=== PATIENT | male | born 1995 | race Caucasian/White ===

== ENCOUNTER 2017-08-23 11:11 | Emergency (ER) | payer OTHER ==
[2017-08-23] MEDS ORDERED: diphenhydrAMINE INJ 50 MG/ML VIAL IVP STA (12:25)
[2017-08-23] MEDS ORDERED: METOCLOPRAMIDE 10 MG/2 ML VIAL IVP STA (12:25)
--- NOTE | 2017-08-23 12:27 | ED Physician Documentation ---
History of Present Illness - Stated complaint Stated Complaint: CAZARES/VOMITING - Chief complaint Chief Complaint: General - History obtained from History obtained from: Patient, Family () - History of Present Illness Timing: Today (Gentleman, previously healthy with only occasional headaches resolved by Motrin was awoken today at 9 AM by a pretty bad global headache associated with mild light sensitivity and vomiting. He is most worried because on the second round of vomiting it became bloody, but has vomited since and it is only slightly bloody now. There is no diarrhea, recent illness, fever , recent travel.) Review of Systems Constitutional: denies: Fever, Chills Cardiac: denies: Chest pain / pressure, Palpitations Respiratory: denies: Dyspnea, Cough GI: reports: Nausea, Vomiting. denies: Abdominal Pain PD PAST MEDICAL HISTORY - Past Medical History Past Medical History: Yes Neuro: Headache/migraine - Past Surgical History Past Surgical History: No - Present Medications Home Medications: Ambulatory Orders Medication Instructions Recorded Confirmed Ondansetron HCl [Zofran] 4 mg PO Q6H PRN #10 tablet 08/23/17 - Allergies Allergies/Adverse Reactions: Allergies Allergy/AdvReac Type Severity Reaction Status Date / Time No Known Drug Allergies Allergy Verified 08/23/17 11:19 - Social History Does the pt smoke?: No Smoking Status: Never smoker Does the pt drink ETOH?: No Does the pt have substance abuse?: No - Immunizations Immunizations are current?: Yes - POLST Patient has POLST: No PD ED PE NORMAL - Vitals Vital signs reviewed: Yes - General General: Alert and oriented X 3, No acute distress - HEENT HEENT: PERRL, EOMI, Ears normal, Pharynx benign - Neck Neck: Supple, no meningeal sign, No bony TTP - Cardiac Cardiac: RRR, No murmur - Respiratory Respiratory: No respiratory distress, Clear bilaterally - Abdomen Abdomen: Normal bowel sounds, Soft, Non tender - Neuro Neuro: Alert and oriented X 3, Normal speech Eye Opening: Spontaneous Motor: Obeys Commands Verbal: Oriented GCS Score: 15 - Psych Psych: Normal mood, Normal affect Results - Vitals Vitals: Vital Signs - 24 hr 08/23/17 11:15 Temperature 36.4 C L Heart Rate 76 Respiratory 14 Rate Blood Pressure 125/69 O2 Saturation 100 Oxygen O2 Source Room air - Labs Labs: Laboratory Tests 08/23/17 08/23/17 08/23/17 12:30 12:30 12:30 WBC 12.8 H RBC 5.23 Hgb 15.3 Hct 44.6 MCV 85.2 MCH 29.2 MCHC 34.2 RDW 12.5 Plt Count 243 MPV 7.2 L Neut # 11.4 H Lymph # 0.9 L Cass # 0.5 Eos # 0.0 Baso # 0.0 Absolute Nucleated RBC 0.00 Nucleated RBC % 0.0 PT 12.0 INR 1.1 Sodium 136 Potassium 3.9 Chloride 102 Carbon Dioxide 26 Anion Gap 8.0 BUN 18 Creatinine 1.0 Estimated GFR (MDRD) 95 Glucose 105 H Calcium 9.7 Total Bilirubin 1.0 AST 23 ALT 27 Alkaline Phosphatase 61 Total Protein 7.9 Albumin 5.1 Globulin 2.8 Albumin/Globulin Ratio 1.8 Lipase < 10 L - Rads (name of study) Ct Head Radiology: EMP read contemporaneously (NAD) PD MEDICAL DECISION MAKING - ED course ED course: 21-year-old gentleman with a history of headaches but now a somewhat atypical headache for him, he is more concerned about the emesis and hematemesis which seems most like a Jennifer-Yin tear. He appears comfortable and has normal neurologic exam. There is no neck stiffness or fever. His head CT was normal and we discussed a lumbar puncture, after discussion of the procedure he refuses this procedure and prefers to watch his symptoms at home, he does understand there is a small risk of missed pathology including subarachnoid hemorrhage or meningitis. Departure - Departure Disposition: 01 Home, Self Care Clinical Impression: Headache Qualifiers: Headache type: unspecified Headache chronicity pattern: acute headache Intractability: not intractable Qualified Code(s): R51 - Headache Vomiting Qualifiers: Vomiting type: unspecified Vomiting Intractability: non-intractable Nausea presence: with nausea Qualified Code(s): R11.2 - Nausea with vomiting, unspecified Condition: Good Record reviewed to determine appropriate education?: Yes Instructions: ED Cephalgia Unspecified Prescriptions: Ondansetron HCl [Zofran] 4 mg PO Q6H PRN #10 tablet PRN Reason: Nausea / Vomiting Comments: Return anytime as discussed especially if you develop fever or neck stiffness or worsen in any other way.
[2017-08-23 12:49] LABS: INR 1.1 (0.8-1.2)
[2017-08-23 12:58] LABS: BASOPHILS % (AUTO) 0.1 %; EOSINOPHILS % (AUTO) 0.1 %; HGB - HEMOGLOBIN 15.3 g/dL (14.0-18.0); LYMPHOCYTES # (AUTO) 0.9 10^3/uL (1.5-3.5); LYMPHOCYTES % (AUTO) 7.1 %; MEAN CORPUSCULAR HEMOGLOBIN 29.2 pg (27.0-31.0); MEAN CORPUSCULAR HGB CONC 34.2 g/dL (32.0-36.0); MEAN CORPUSCULAR VOLUME 85.2 fL (80.0-94.0); MEAN PLATELET VOLUME 7.2 fL (7.4-11.4); MONOCYTES # (AUTO) 0.5 10^3/uL (0.0-1.0); MONOCYTES % (AUTO) 3.7 %; NEUTROPHILS # (AUTO) 11.4 10^3/uL (1.5-6.6); PLT - PLATELET COUNT 243 10^3/uL (130-450); RED BLOOD COUNT 5.23 10^6/uL (4.70-6.10); RED CELL DISTRIBUTION WIDTH 12.5 % (12.0-15.0); WHITE BLOOD COUNT 12.8 x10^3/uL (4.8-10.8)
[2017-08-23 13:02] LABS: ALBUMIN 5.1 g/dL (3.2-5.5); ALBUMIN/GLOBULIN RATIO 1.8 (1.0-2.2); ALKALINE PHOSPHATASE 61 IU/L (42-121); ALT ALANINE AMINOTRANSFERASE 27 IU/L (10-60); AST ASPARTATE AMINOTRANSFERASE 23 IU/L (10-42); BUN - BLOOD UREA NITROGEN 18 mg/dL (6-20); CALCIUM 9.7 mg/dL (8.5-10.3); CARBON DIOXIDE - CO2 26 mmol/L (21-32); CHLORIDE 102 mmol/L (101-111); GFR - MDRD 95 (>89); GLUCOSE 105 mg/dL (70-100); SODIUM 136 mmol/L (135-145); TOTAL PROTEIN 7.9 g/dL (6.7-8.2)
[2017-08-23 13:03] LABS: LIPASE < 10 U/L (22-51)
--- NOTE | 2017-08-23 13:03 | CT Report ---
EXAM: CT HEAD EXAM DATE: 08/23/2017 12:41 PM. CLINICAL HISTORY: Frontal headache. Vomiting blood. COMPARISON: None. TECHNIQUE: Multiaxial CT images were obtained from the foramen magnum to the vertex. Reformats: Coron al. IV contrast: None. In accordance with CT protocol optimization, one or more of the following dose reduction techniques w ere utilized for this exam: automated exposure control, adjustment of mA and/or KV based on patient s ize, or use of iterative reconstructive technique. FINDINGS: Parenchyma: No intraparenchymal hemorrhage. No evidence of mass, midline shift, or CT findings of inf arction. Siegel-white differentiation is distinct. Extraaxial Spaces: Normal for age. No subdural or epidural collections identified. Ventricles: Normal in size and position. Sinuses and Orbits: Imaged paranasal sinuses, orbits, and mastoids show no significant abnormality. Bones: No evidence of fracture or calvarial defect. Other: None. IMPRESSION: No acute intracranial abnormality. [facility] Referring Provider Line: [phone] SITE ID: [id number]
--- NOTE | 2017-08-23 13:03 | CT Preliminary Report ---
Exam: CT HEAD W/O IMPRESSION: No acute intracranial abnormality. [facility] SITE ID: [id number]
[2017-08-23] MEDS ORDERED: KETOROLAC 30 MG/ML VIAL IVP STA (13:21)
[2017-08-23 13:42] VITALS: BP 118/77
== END 2017-08-23 13:41 | disposition home or self-care (01) ==
LOC: ED 11:11
DX: R51 Headache (principal); R11.2 Nausea with vomiting, unspecified
CPT/HCPCS: 36415; 70450; 80053; 83690; 85025; 85610; 96374; 96375; 99283; J1200; J2765